=== PATIENT | male | born 1960 | race Caucasian/White ===

== ENCOUNTER 2021-05-10 13:21 | Inpatient (IN) | payer BC, OTHER ==
[2021-05-10 15:01] LABS: #Monocytes 0.4 thou/uL (0.11-0.59); #Neutrophils 3.3 thou/uL (1.40-6.50); %Basophils 0.7 % (0.0-1.0); %Eosinophils 0.6 % (0.0-10.0); %Lymphocytes 20.9 % (21.0-51.0); %Neutrophils 68.8 % (42.0-75.0); Hemoglobin 6.5 g/dL (14.0-18.0); Mean Corpuscular HGB CONC 31.2 g/dL (32.0-36.0); Mean Corpuscular Hemoglobin 23.6 pg (27.0-31.0); Mean Corpuscular Volume 75.4 fL (78.0-98.0); RBC Distribution Width 19.8 % (11.5-14.5); Red Blood Cell (RBC) Count 2.75 mill/uL (4.70-6.10); White Blood Cell (WBC) Count 4.7 thou/uL (4.8-10.8)
[2021-05-10 15:21] LABS: ALT (SGPT) 19 U/L (8-55); AST (SGOT) 60 U/L (5-34); Albumin 3.7 g/dL (3.5-5.0); Alkaline Phosphatase 83 U/L (40-110); Anion Gap 16 mmol/L (10-20); BUN (Urea Nitrogen) 7 mg/dL (8.4-25.7); Bilirubin, Total 1.2 mg/dL (0.2-1.2); Calc. Creatinine Clearance 0 mL/min (70-130); Calcium 8.5 mg/dL (7.8-10.44); Carbon Dioxide 18 mmol/L (22-29); Chloride 95 mmol/L (98-107); Globulin 3.2 g/dL (2.4-3.5); Glucose 98 mg/dL (70-105); Magnesium 2.1 mg/dL (1.6-2.6); Potassium 4.6 mmol/L (3.5-5.1); Protein, Total 6.9 g/dL (6.0-8.3); Sodium 124 mmol/L (136-145)
[2021-05-10 15:29] LABS: Hypochromia SLIGHT = 6-15 cells (100X) (0-5/hpf); MDiff Complete? YES; Mean Platelet Volume 10.3 fL (7.4-10.4); Microcytosis SLIGHT = 6-15 cells (100X) (0-5/hpf); Platelet Count 115 thou/uL (130-400); Platelet Morphology Comment Appears Decreased; Polychromasia SLIGHT = 2-3 cells (100X) (0-2/hpf); Schistocytes SLIGHT = 2-5 cells (100X) (0-1/hpf); Target Cells SLIGHT = 2-5 cells (100X) (0-1/hpf); Tear Drops SLIGHT = 2-5 cells (100X) (0-1/hpf)
[2021-05-10] MEDS ORDERED: Pantoprazole 40 MG VIAL ONE (16:29)
[2021-05-10 16:33] LABS: Bilirubin Negative (Negative); Blood, Urine Negative (Negative); Clarity Clear (Clear); Glucose, Urine (Dipstick) Normal (Negative); Ketone, Urine Negative (Negative); Leukocyte Negative Leu/uL (Negative); Nitrite Negative (Negative); Protein, Urine (Dipstick) Negative (Neg-Trace); Specific Gravity, Urine 1.003 (1.002-1.036); Urobilinogen Normal mg/dL (Less than 2)
[2021-05-10] MEDS ORDERED: Ondansetron PF 4 MG/2 ML Vial IVP PRN (17:45)
[2021-05-10] MEDS ORDERED: Ondansetron ODT 4 MG TAB PO PRN (17:45)
[2021-05-10] MEDS ORDERED: Acetaminophen 650 MG Suppository PR PRN (17:45)
[2021-05-10] MEDS ORDERED: Lorazepam 2 MG/ML VIAL IM PRN (17:54)
[2021-05-10] MEDS ORDERED: Lorazepam 1 MG TAB PO PRN (17:54)
[2021-05-10] MEDS ORDERED: Lorazepam 1 MG TAB PO SCH (18:00)
[2021-05-10 18:56] LABS: Hemoglobin 6.8 g/dL (14.0-18.0)
[2021-05-10 19:17] LABS: Bilirubin, Direct 0.5 mg/dL (0.1-0.3); Phosphorus 4.2 mg/dL (2.3-4.7)
[2021-05-10 19:27] LABS: Magnesium 2.1 mg/dL (1.6-2.6)
[2021-05-10 19:32] LABS: Syphilis Antibody Nonreactive (Nonreactive); Syphilis Antibody Index 0.27 S/CO (<1.00 Non-Reactive)
[2021-05-10] MEDS: Sodium Chloride 0.9% 1,000 ML IV SCH (21:00)
[2021-05-10] MEDS ORDERED: Folic Acid 1 MG TAB PO SCH (21:30)
[2021-05-10 22:26] VITALS: BMI 27.5
[2021-05-10] MEDS: Lorazepam 1 MG TAB PO SCH (23:57)
[2021-05-10] MEDS: Thiamine HCl 200 MG/2 ML VIAL SLOW IVP SCH (23:57)
[2021-05-11] MEDS: Sodium Chloride 0.9% 1,000 ML IV SCH (00:30)
[2021-05-11 01:24] LABS: Amphetamine Not Detected (NotDetected); Barbiturates Screen Not Detected (NotDetected); Benzodiazepine Screen Detected (NotDetected); Cocaine Metabolite Screen Not Detected (NotDetected); Methadone Not Detected (NotDetected); Methamphetamine Not Detected (NotDetected); Opiate Screen Not Detected (NotDetected); Oxycodone Screen Not Detected (NotDetected); Phencyclidine (PCP) Not Detected (NotDetected); THC/Cannabinoid Screen Not Detected (NotDetected); Tricyclic Screen Not Detected (NotDetected)
[2021-05-11 01:26] LABS: Potassium, Urine 39.9 mmol/L
[2021-05-11] MEDS: Lorazepam 1 MG TAB PO SCH ×4 (05:29→21:59)
[2021-05-11 06:39] LABS: #Lymphocytes 0.9 thou/uL (1.20-3.40); #Monocytes 0.4 thou/uL (0.11-0.59); #Neutrophils 2.8 thou/uL (1.40-6.50); %Basophils 0.8 % (0.0-1.0); %Eosinophils 0.7 % (0.0-10.0); %Lymphocytes 21.4 % (21.0-51.0); %Monocytes 9.7 % (0.0-10.0); %Neutrophils 67.3 % (42.0-75.0); Mean Corpuscular HGB CONC 30.4 g/dL (32.0-36.0); Mean Corpuscular Hemoglobin 23.5 pg (27.0-31.0); Mean Corpuscular Volume 77.2 fL (78.0-98.0); Mean Platelet Volume 9.7 fL (7.4-10.4); Platelet Count 102 thou/uL (130-400); Red Blood Cell (RBC) Count 2.99 mill/uL (4.70-6.10); White Blood Cell (WBC) Count 4.1 thou/uL (4.8-10.8)
[2021-05-11 06:50] LABS: Anion Gap 14 mmol/L (10-20); BUN (Urea Nitrogen) 8 mg/dL (8.4-25.7); Calc. Creatinine Clearance 118 mL/min (70-130); Calcium 8.5 mg/dL (7.8-10.44); Carbon Dioxide 21 mmol/L (22-29); Chloride 99 mmol/L (98-107); Glucose 81 mg/dL (70-105); Iron 22 ug/dL (65-175); Iron Binding Capacity, Total 341 mcg/dL (261-462); Potassium 4.5 mmol/L (3.5-5.1); Sodium 129 mmol/L (136-145)
[2021-05-11 06:51] LABS: Iron 24 ug/dL (65-175); Iron Binding Capacity, Total 340 mcg/dL (261-462)
[2021-05-11] MEDS: Folic Acid 1 MG TAB PO SCH (07:52)
[2021-05-11] MEDS: Multivit, Therapeutic 1 TAB PO SCH (07:52)
[2021-05-11 08:01] LABS: Hypochromia SLIGHT = 6-15 cells (100X) (0-5/hpf); MDiff Complete? YES; Microcytosis SLIGHT = 6-15 cells (100X) (0-5/hpf); Platelet Morphology Comment Appears Decreased; Polychromasia SLIGHT = 2-3 cells (100X) (0-2/hpf)
[2021-05-11] MEDS ORDERED: GoLYTELY 4,000 ml Bottle PO SCH (12:00)
[2021-05-11 12:19] LABS: SARS-CoV-2 PCR by NAA Not Detected (NotDetected)
[2021-05-11 12:32] LABS: Hemoglobin 7.1 g/dL (14.0-18.0)
[2021-05-11] MEDS: Pantoprazole 40 MG VIAL IVP SCH (13:24)
[2021-05-11] MEDS ORDERED: Lorazepam 1 MG TAB PO PRN (17:54)
[2021-05-11 18:56] LABS: Hemoglobin 7.2 g/dL (14.0-18.0)
[2021-05-11] MEDS: Acetaminophen 325 MG TAB PO PRN (20:35)
[2021-05-11] MEDS: Thiamine HCl 200 MG/2 ML VIAL SLOW IVP SCH (20:36)
[2021-05-12 00:46] LABS: Hemoglobin 6.5 g/dL (14.0-18.0)
[2021-05-12] MEDS: Lorazepam 1 MG TAB PO SCH ×4 (04:55→21:24)
[2021-05-12] MEDS: Levothyroxine Sodium 100 MCG TAB PO SCH (05:20)
[2021-05-12] MEDS ORDERED: PROPOFOL 20 ML ONE (07:52)
[2021-05-12] MEDS ORDERED: Ketamine 50 MG/ML (10ML VIAL) ONE (07:52)
[2021-05-12] MEDS ORDERED: PROPOFOL 200 MG/20 ML VIAL ONE (08:20)
[2021-05-12] MEDS ORDERED: ePHEDrine 50 MG/ML VIAL ONE (08:20)
[2021-05-12] MEDS ORDERED: Levothyroxine Sodium 100 MCG TAB PO SCH (09:00)
[2021-05-12] MEDS ORDERED: Ondansetron HCl/PF 4 MG/2 ML Vial IVP PRN (09:15)
[2021-05-12] MEDS ORDERED: Promethazine HCl 25 MG/ML VIAL IM PRN (09:15)
[2021-05-12] MEDS ORDERED: Promethazine HCl 25 MG/ML VIAL IVPB PRN (09:15)
[2021-05-12] MEDS: Amlodipine 5 MG TAB PO SCH (10:03)
[2021-05-12] MEDS: Lisinopril 10 MG TAB PO SCH (10:03)
[2021-05-12] MEDS: Folic Acid 1 MG TAB PO SCH (10:03)
[2021-05-12] MEDS: Multivit, Therapeutic 1 TAB PO SCH (10:04)
[2021-05-12] MEDS: Multivitamin W/ Minerals 1 TAB PO SCH (10:04)
[2021-05-12] MEDS: Pantoprazole 40 MG VIAL IVP SCH (10:04)
[2021-05-12] MEDS: Sodium Chloride 0.9% 1,000 ML IV SCH (10:05)
[2021-05-12] MEDS ORDERED: Iron, Sodium Ferric Gluconate 250 MG in Sodium Chloride 0.9% 250 ML 250 ML IVPB SCH (11:00)
[2021-05-12] MEDS: Acetaminophen 325 MG TAB PO PRN (12:41)
[2021-05-12] MEDS: Lorazepam 0.5 MG TAB PO SCH (17:46)
[2021-05-12] MEDS ORDERED: Lorazepam 1 MG TAB PO PRN (17:54)
[2021-05-12 19:53] LABS: Hemoglobin 8.6 g/dL (14.0-18.0)
[2021-05-12] MEDS: Thiamine HCl 200 MG/2 ML VIAL SLOW IVP SCH (20:43)
[2021-05-13] MEDS: Lorazepam 0.5 MG TAB PO SCH ×3 (00:21→12:49)
[2021-05-13] MEDS: Sodium Chloride 0.9% 1,000 ML IV SCH (05:16)
[2021-05-13] MEDS: Levothyroxine Sodium 100 MCG TAB PO SCH (05:16)
[2021-05-13 08:30] LABS: #Eosinphils 0.1 thou/uL (0.0-0.7); #Lymphocytes 1.3 thou/uL (1.20-3.40); #Monocytes 0.6 thou/uL (0.11-0.59); #Neutrophils 3.3 thou/uL (1.40-6.50); %Basophils 0.8 % (0.0-1.0); %Eosinophils 2.1 % (0.0-10.0); %Lymphocytes 23.7 % (21.0-51.0); %Monocytes 10.7 % (0.0-10.0); %Neutrophils 62.7 % (42.0-75.0); Hemoglobin 7.8 g/dL (14.0-18.0); Mean Corpuscular HGB CONC 30.7 g/dL (32.0-36.0); Mean Corpuscular Hemoglobin 24.9 pg (27.0-31.0); Mean Corpuscular Volume 81.1 fL (78.0-98.0); Mean Platelet Volume 10.6 fL (7.4-10.4); Platelet Count 110 thou/uL (130-400); RBC Distribution Width 20.6 % (11.5-14.5); Red Blood Cell (RBC) Count 3.13 mill/uL (4.70-6.10); White Blood Cell (WBC) Count 5.3 thou/uL (4.8-10.8)
[2021-05-13] MEDS ORDERED: Loperamide HCl 2 MG CAP PO PRN ×2 (08:33)
[2021-05-13] MEDS: Amlodipine 5 MG TAB PO SCH (08:47)
[2021-05-13] MEDS: Multivitamin W/ Minerals 1 TAB PO SCH (08:47)
[2021-05-13] MEDS: Folic Acid 1 MG TAB PO SCH (08:47)
[2021-05-13] MEDS: Lisinopril 10 MG TAB PO SCH ×2 (08:47→08:52)
[2021-05-13 08:48] LABS: Anion Gap 11 mmol/L (10-20); BUN (Urea Nitrogen) 5 mg/dL (8.4-25.7); Calc. Creatinine Clearance 106 mL/min (70-130); Calcium 8.1 mg/dL (7.8-10.44); Carbon Dioxide 21 mmol/L (22-29); Chloride 97 mmol/L (98-107); Glucose 97 mg/dL (70-105); Potassium 3.2 mmol/L (3.5-5.1); Sodium 126 mmol/L (136-145)
[2021-05-13] MEDS ORDERED: Potassium Chloride 20 MEQ TAB PO SCH (10:00)
[2021-05-13 10:09] LABS: ALT (SGPT) 8 U/L (8-55); AST (SGOT) 17 U/L (5-34); Albumin 3.1 g/dL (3.5-5.0); Alkaline Phosphatase 60 U/L (40-110); Bilirubin, Total 1.6 mg/dL (0.2-1.2); Globulin 2.6 g/dL (2.4-3.5); Protein, Total 5.7 g/dL (6.0-8.3)
[2021-05-13 12:13] VITALS: BP 117/77; TEMP 97.2
[2021-05-13 17:02] LABS: EliA Celiac New Method **** NEW METHOD ****; t-Transglutaminase (tTG) IgA 0.6 EliAU/mL (<7 Negative)
[2021-05-13] MEDS ORDERED: Lorazepam 0.5 MG TAB PO PRN (17:54)
[2021-05-13] MEDS ORDERED: Thiamine 100 MG TAB PO SCH (21:00)
== END 2021-05-13 12:45 | disposition home or self-care (01) | DRG 369 ==
LOC: ERS 13:21 → T4-B 16:54
PROVIDERS: ADMIT Internal Medicine; ATTEND Internal Medicine
PROC: 30233N1 Transfusion of Nonautologous Red Blood Cells into Peripheral Vein, Percutaneous Approach (ICD-10-PCS; principal; 2021-05-10)
PROC: 0DJ08ZZ Inspection of Upper Intestinal Tract, Via Natural or Artificial Opening Endoscopic (ICD-10-PCS; 2021-05-12)
PROC: 0DBK8ZZ Excision of Ascending Colon, Via Natural or Artificial Opening Endoscopic (ICD-10-PCS; 2021-05-12)
PROC: 0DBL8ZZ Excision of Transverse Colon, Via Natural or Artificial Opening Endoscopic (ICD-10-PCS; 2021-05-12)
PROC: 0DBN8ZZ Excision of Sigmoid Colon, Via Natural or Artificial Opening Endoscopic (ICD-10-PCS; 2021-05-12)
PROC: 0DBH8ZZ Excision of Cecum, Via Natural or Artificial Opening Endoscopic (ICD-10-PCS; 2021-05-12)
PROC: 0D5M8ZZ Destruction of Descending Colon, Via Natural or Artificial Opening Endoscopic (ICD-10-PCS; 2021-05-12)
DX: K21.01 Gastro-esophageal reflux disease with esophagitis, with bleeding (principal); E87.1 Hypo-osmolality and hyponatremia; K76.6 Portal hypertension; E51.9 Thiamine deficiency, unspecified; D62 Acute posthemorrhagic anemia; Z20.822 Contact with and (suspected) exposure to COVID-19; E53.8 Deficiency of other specified B group vitamins; E88.09 Other disorders of plasma-protein metabolism, not elsewhere classified; F10.10 Alcohol abuse, uncomplicated; K63.5 Polyp of colon; F32.A Depression, unspecified; H40.9 Unspecified glaucoma; E03.9 Hypothyroidism, unspecified; K31.89 Other diseases of stomach and duodenum; K55.20 Angiodysplasia of colon without hemorrhage; Z71.41 Alcohol abuse counseling and surveillance of alcoholic; Z80.0 Family history of malignant neoplasm of digestive organs; Z79.899 Other long term (current) drug therapy; Z79.890 Hormone replacement therapy
CPT/HCPCS: 36415; 36430; 71045; 80048; 80053; 80306; 81003; 82248; 82274; 82436; 82607; 82746; 83516; 83540; 83550; 83735; 83930; 83935; 84100; 84133; 84300; 84484; 84540; 84560; 85014; 85018; 85025; 86780; 86850; 86900; 86901; 88305; 93005; 96374; C9113; J2704; J2916; J3411; J3490; J7050; P9016; U0003; U0005

== ENCOUNTER 2021-09-24 15:55 | Inpatient (IN) | payer OTHER, SELFPAY ==
[2021-09-24 16:57] LABS: ALT (SGPT) 14 U/L (8-55); AST (SGOT) 42 U/L (5-34); Albumin 3.2 g/dL (3.5-5.0); Alkaline Phosphatase 172 U/L (40-110); Anion Gap 11 mmol/L (10-20); BUN (Urea Nitrogen) 6 mg/dL (8.4-25.7); Bilirubin, Total 2.8 mg/dL (0.2-1.2); Calc. Creatinine Clearance 0 mL/min (70-130); Calcium 8.2 mg/dL (7.8-10.44); Carbon Dioxide 20 mmol/L (22-29); Chloride 93 mmol/L (98-107); Globulin 3.7 g/dL (2.4-3.5); Glucose 101 mg/dL (70-105); Potassium 4.5 mmol/L (3.5-5.1); Protein, Total 6.9 g/dL (6.0-8.3)
[2021-09-24 16:57] LABS: Bilirubin Negative (Negative); Blood, Urine Negative (Negative); Clarity Clear (Clear); Glucose, Urine (Dipstick) Normal (Negative); Ketone, Urine Negative (Negative); Leukocyte Negative Leu/uL (Negative); Nitrite Negative (Negative); Protein, Urine (Dipstick) 10 mg/dL (Neg-Trace); Specific Gravity, Urine 1.013 (1.002-1.036); Urobilinogen Normal mg/dL (Less than 2)
[2021-09-24 17:10] LABS: Sodium 119 mmol/L (136-145)
[2021-09-24 17:26] LABS: Hemoglobin 7.1 g/dL (14.0-18.0); Mean Corpuscular HGB CONC 29.4 g/dL (32.0-36.0); Mean Corpuscular Hemoglobin 26.6 pg (27.0-31.0); Mean Corpuscular Volume 90.6 fL (78.0-98.0); Mean Platelet Volume 6.6 fL (7.4-10.4); Platelet Count 201 thou/uL (130-400); RBC Distribution Width 14.3 % (11.5-14.5); Red Blood Cell (RBC) Count 2.65 mill/uL (4.70-6.10); White Blood Cell (WBC) Count 6.9 thou/uL (4.8-10.8)
[2021-09-24] MEDS ORDERED: Ondansetron PF 4 MG/2 ML Vial IVP PRN (17:56)
[2021-09-24] MEDS ORDERED: Lorazepam 1 MG TAB PO PRN (18:05)
[2021-09-24] MEDS ORDERED: Ondansetron ODT 4 MG TAB PO PRN (18:05)
[2021-09-24] MEDS ORDERED: Lorazepam 2 MG/ML VIAL IM PRN (18:05)
[2021-09-24 18:08] LABS: #Basophils 0.1 thou/uL (0.0-0.2); #Eosinphils 0.1 thou/uL (0.0-0.7); #Lymphocytes 0.9 thou/uL (1.20-3.40); #Monocytes 0.6 thou/uL (0.11-0.59); #Neutrophils 5.2 thou/uL (1.40-6.50); %Basophils 1.1 % (0.0-1.0); %Eosinophils 0.8 % (0.0-10.0); %Lymphocytes 13.6 % (21.0-51.0); %Monocytes 9.1 % (0.0-10.0); %Neutrophils 75.4 % (42.0-75.0)
[2021-09-24 18:09] LABS: Hypochromia SLIGHT = 6-15 cells (100X) (0-5/hpf); MDiff Complete? YES; Platelet Morphology Comment Appears Adequate; Polychromasia SLIGHT = 2-3 cells (100X) (0-2/hpf)
[2021-09-24] MEDS ORDERED: Morphine 4 MG/ML VIAL SLOW IVP PRN (18:11)
[2021-09-24] MEDS ORDERED: Electrolyte Replacement Protocol 1 EACH FS SCH (18:15)
[2021-09-24] MEDS ORDERED: Lorazepam 1 MG TAB PO SCH (18:15)
[2021-09-24] MEDS ORDERED: Multivit, Therapeutic 1 TAB PO SCH (18:30)
[2021-09-24] MEDS ORDERED: Folic Acid 1 MG TAB PO SCH (18:30)
[2021-09-24] MEDS ORDERED: Electrolyte Replacement Protocol FS PRN (18:30)
[2021-09-24 18:47] LABS: Bilirubin, Direct 1.8 mg/dL (0.1-0.3); Magnesium 1.9 mg/dL (1.6-2.6); Phosphorus 3.6 mg/dL (2.3-4.7)
[2021-09-24 22:27] VITALS: BMI 30.9
[2021-09-24] MEDS: Thiamine HCl 200 MG/2 ML VIAL SLOW IVP SCH (22:34)
[2021-09-25] MEDS ORDERED: Magnesium 2 GM/50 ML 2 GM in Premix Bag 1 BAG IVPB SCH (03:30)
[2021-09-25] MEDS: Lorazepam 1 MG TAB PO SCH ×4 (03:58→23:01)
[2021-09-25 06:30] LABS: Hemoglobin 6.1 g/dL (14.0-18.0); Mean Corpuscular HGB CONC 30.8 g/dL (32.0-36.0); Mean Corpuscular Hemoglobin 27.7 pg (27.0-31.0); Mean Corpuscular Volume 89.9 fL (78.0-98.0); Platelet Count 162 thou/uL (130-400); RBC Distribution Width 14.2 % (11.5-14.5); Red Blood Cell (RBC) Count 2.19 mill/uL (4.70-6.10); White Blood Cell (WBC) Count 5.6 thou/uL (4.8-10.8)
[2021-09-25 06:36] LABS: INR-International Normal Ratio 1.4; Prothrombin Time 17.5 sec (12.0-14.7)
[2021-09-25 06:52] LABS: ALT (SGPT) 11 U/L (8-55); AST (SGOT) 30 U/L (5-34); Albumin 2.6 g/dL (3.5-5.0); Alkaline Phosphatase 135 U/L (40-110); Anion Gap 12 mmol/L (10-20); BUN (Urea Nitrogen) 8 mg/dL (8.4-25.7); Bilirubin, Total 2.4 mg/dL (0.2-1.2); Calc. Creatinine Clearance 102 mL/min (70-130); Calcium 7.8 mg/dL (7.8-10.44); Carbon Dioxide 18 mmol/L (22-29); Chloride 95 mmol/L (98-107); Glucose 86 mg/dL (70-105); Iron 11 ug/dL (65-175); Iron Binding Capacity, Total 196 mcg/dL (261-462); Potassium 4.7 mmol/L (3.5-5.1); Protein, Total 5.6 g/dL (6.0-8.3); Sodium 120 mmol/L (136-145)
[2021-09-25] MEDS ORDERED: Sodium Bicarbonate 2.5 MEQ/5 ML VIAL ONE (08:01)
[2021-09-25] MEDS ORDERED: Lidocaine 1% PF 5 ML VIAL ONE (08:01)
[2021-09-25 08:03] LABS: #Eosinphils 0.1 thou/uL (0.0-0.7); #Lymphocytes 1.1 thou/uL (1.20-3.40); #Monocytes 0.7 thou/uL (0.11-0.59); #Neutrophils 3.8 thou/uL (1.40-6.50); %Basophils 0.8 % (0.0-1.0); %Eosinophils 1.1 % (0.0-10.0); %Monocytes 12.5 % (0.0-10.0); %Neutrophils 66.6 % (42.0-75.0); Hypochromia SLIGHT = 6-15 cells (100X) (0-5/hpf); MDiff Complete? YES; Platelet Morphology Comment Appears Adequate; Polychromasia SLIGHT = 2-3 cells (100X) (0-2/hpf)
[2021-09-25] MEDS ORDERED: Folic Acid 1 MG TAB PO SCH (09:00)
[2021-09-25] MEDS: Furosemide 40 MG TAB PO SCH (10:05)
[2021-09-25] MEDS: Sodium Chloride 1 GM TAB PO SCH ×2 (10:05→17:05)
[2021-09-25] MEDS: Spironolactone 100 MG TAB PO SCH (10:05)
[2021-09-25] MEDS: Multivit, Therapeutic 1 TAB PO SCH (10:05)
[2021-09-25 11:11] LABS: RBC Count-Automated (BF) 22 /cu.mm; WBC/Nucleated-Auto (BF) 216 /cu.mm
[2021-09-25 11:24] LABS: BF Color Yellow; Body Fluid Source Peritoneal Fluid; Clarity Hazy (Clear); Tube # EDTA
[2021-09-25 11:36] LABS: BF Segmented Neutrophils 30 %; Cell Count Non Hematic 47 %; Lymphocytes 23 %
[2021-09-25 13:28] LABS: SARS-CoV-2 PCR by NAA Not Detected (NotDetected)
[2021-09-25] MEDS: Acetaminophen 500 MG TAB PO PRN (17:04)
[2021-09-25] MEDS ORDERED: Lorazepam 1 MG TAB PO PRN (18:06)
[2021-09-25] MEDS: Thiamine HCl 200 MG/2 ML VIAL SLOW IVP SCH (18:09)
[2021-09-26 06:08] LABS: #Eosinphils 0.1 thou/uL (0.0-0.7); #Lymphocytes 1.1 thou/uL (1.20-3.40); #Monocytes 0.5 thou/uL (0.11-0.59); #Neutrophils 2.5 thou/uL (1.40-6.50); %Basophils 0.8 % (0.0-1.0); %Eosinophils 1.8 % (0.0-10.0); %Lymphocytes 26.2 % (21.0-51.0); %Monocytes 11.6 % (0.0-10.0); %Neutrophils 59.7 % (42.0-75.0); Hemoglobin 6.4 g/dL (14.0-18.0); Mean Corpuscular HGB CONC 30.6 g/dL (32.0-36.0); Mean Corpuscular Hemoglobin 27.5 pg (27.0-31.0); Mean Corpuscular Volume 89.8 fL (78.0-98.0); Mean Platelet Volume 6.5 fL (7.4-10.4); Platelet Count 167 thou/uL (130-400); RBC Distribution Width 14.3 % (11.5-14.5); Red Blood Cell (RBC) Count 2.34 mill/uL (4.70-6.10); White Blood Cell (WBC) Count 4.2 thou/uL (4.8-10.8)
[2021-09-26] MEDS: Lorazepam 1 MG TAB PO SCH ×3 (06:18→16:03)
[2021-09-26] MEDS: Levothyroxine Sodium 100 MCG TAB PO SCH (07:19)
[2021-09-26] MEDS: Ferrous Sulfate 325 MG TAB PO SCH (08:35)
[2021-09-26] MEDS: Folic Acid 1 MG TAB PO SCH (08:35)
[2021-09-26] MEDS: Multivit, Therapeutic 1 TAB PO SCH (08:35)
[2021-09-26] MEDS: Lisinopril 10 MG TAB PO SCH (08:36)
[2021-09-26] MEDS: Spironolactone 100 MG TAB PO SCH (08:36)
[2021-09-26] MEDS: Sodium Chloride 1 GM TAB PO SCH ×3 (08:36→16:03)
[2021-09-26] MEDS: Furosemide 40 MG TAB PO SCH (08:37)
[2021-09-26] MEDS: Amlodipine 5 MG TAB PO SCH (08:37)
[2021-09-26] MEDS: Mirtazapine 30 MG TAB PO SCH (08:37)
[2021-09-26] MEDS: Iron, Sodium Ferric Gluconate 250 MG in Sodium Chloride 0.9% 250 ML 250 ML IVPB SCH ×2 (13:00→20:43)
[2021-09-26] MEDS: Phytonadione 10 MG in Sodium Chloride 0.9% 50 ML IVPB SCH ×2 (15:01→15:03)
[2021-09-26 16:43] LABS: Hemoglobin 7.5 g/dL (14.0-18.0); Platelet Count 167 thou/uL (130-400)
[2021-09-26] MEDS: Lorazepam 0.5 MG TAB PO SCH (17:54)
[2021-09-26] MEDS: Thiamine HCl 200 MG/2 ML VIAL SLOW IVP SCH (18:04)
[2021-09-26] MEDS ORDERED: Lorazepam 1 MG TAB PO PRN (18:06)
[2021-09-26] MEDS: Benzonatate 100 MG CAP PO PRN (21:40)
[2021-09-26] MEDS: Acetaminophen 500 MG TAB PO PRN (21:40)
[2021-09-27] MEDS: Lorazepam 0.5 MG TAB PO SCH ×3 (00:09→11:39)
[2021-09-27] MEDS: Benzonatate 100 MG CAP PO PRN (05:22)
[2021-09-27] MEDS: Levothyroxine Sodium 100 MCG TAB PO SCH (05:22)
[2021-09-27 06:41] VITALS: TEMP 98.2
[2021-09-27 06:41] LABS: Band 2 % (5-11); Hemoglobin 7.8 g/dL (14.0-18.0); Hypochromia SLIGHT = 6-15 cells (100X) (0-5/hpf); Lymphocytes 4 % (21-51); MDiff Complete? YES; Mean Corpuscular HGB CONC 31.4 g/dL (32.0-36.0); Mean Corpuscular Hemoglobin 28.3 pg (27.0-31.0); Mean Corpuscular Volume 90.1 fL (78.0-98.0); Mean Platelet Volume 6.7 fL (7.4-10.4); Monocytes 12 % (0-10); Neutrophil 82 % (42-75); Platelet Count 183 thou/uL (130-400); Platelet Morphology Comment Appears Adequate; RBC Distribution Width 14.6 % (11.5-14.5); Red Blood Cell (RBC) Count 2.74 mill/uL (4.70-6.10); White Blood Cell (WBC) Count 5.3 thou/uL (4.8-10.8)
[2021-09-27] MEDS: Spironolactone 100 MG TAB PO SCH (08:24)
[2021-09-27] MEDS: Sodium Chloride 1 GM TAB PO SCH ×2 (08:24→17:52)
[2021-09-27] MEDS: Multivit, Therapeutic 1 TAB PO SCH (08:24)
[2021-09-27] MEDS: Mirtazapine 30 MG TAB PO SCH (08:25)
[2021-09-27] MEDS: Amlodipine 5 MG TAB PO SCH (08:25)
[2021-09-27] MEDS: Lisinopril 10 MG TAB PO SCH (08:25)
[2021-09-27] MEDS: Ferrous Sulfate 325 MG TAB PO SCH (08:25)
[2021-09-27] MEDS: Folic Acid 1 MG TAB PO SCH (08:25)
[2021-09-27] MEDS: Furosemide 40 MG TAB PO SCH (08:26)
[2021-09-27 08:52] VITALS: BP 102/67
[2021-09-27] MEDS ORDERED: Lorazepam 0.5 MG TAB PO PRN (18:06)
[2021-09-27] MEDS ORDERED: Thiamine 100 MG TAB PO SCH (18:15)
== END 2021-09-27 20:05 | disposition home or self-care (01) | DRG 433 ==
LOC: ERS 15:55 → 2NO 17:41 → T4-A 09-25 20:57
PROVIDERS: ADMIT Internal Medicine; ATTEND Internal Medicine
PROC: 0W9G3ZZ Drainage of Peritoneal Cavity, Percutaneous Approach (ICD-10-PCS; principal; 2021-09-25)
PROC: 30233N1 Transfusion of Nonautologous Red Blood Cells into Peripheral Vein, Percutaneous Approach (ICD-10-PCS; 2021-09-25)
DX: K70.31 Alcoholic cirrhosis of liver with ascites (principal); E87.1 Hypo-osmolality and hyponatremia; K76.6 Portal hypertension; Z20.822 Contact with and (suspected) exposure to COVID-19; F10.10 Alcohol abuse, uncomplicated; E87.70 Fluid overload, unspecified; E03.9 Hypothyroidism, unspecified; K21.00 Gastro-esophageal reflux disease with esophagitis, without bleeding; K31.89 Other diseases of stomach and duodenum; D50.9 Iron deficiency anemia, unspecified; I10 Essential (primary) hypertension; Z79.899 Other long term (current) drug therapy
CPT/HCPCS: 36415; 36430; 49083; 71045; 76705; 80053; 81003; 82042; 82248; 82728; 83540; 83550; 83735; 83880; 84100; 84157; 84484; 85025; 85060; 85610; 86850; 86900; 86901; 89051; 93005; J2916; J3411; J3430; J3475; J7050; P9016; U0003; U0005

== ENCOUNTER 2021-12-11 13:38 | Outpatient (CLI) | payer OTHER | END 2021-12-11 13:39 | disposition home or self-care (01) | LOC: RAD 13:38 | PROVIDERS: ATTEND Physician Assistant Medical | DX: R05.3 Chronic cough (principal); K70.30 Alcoholic cirrhosis of liver without ascites; R00.0 Tachycardia, unspecified; I49.9 Cardiac arrhythmia, unspecified; D64.9 Anemia, unspecified; R25.2 Cramp and spasm | CPT/HCPCS: 71046; 93005; 93010 ==

== ENCOUNTER 2021-12-14 09:09 | Day surgery (SDC) | payer OTHER ==
[2021-12-13 10:07] VITALS: BMI 30.7
[2021-12-14 09:39] LABS: INR-International Normal Ratio 1.3; Prothrombin Time 15.9 sec (12.0-14.7)
[2021-12-14 09:41] LABS: PTT 40.4 sec (22.9-36.1)
[2021-12-14 09:47] LABS: #Lymphocytes 0.6 thou/uL (1.20-3.40); #Monocytes 0.5 thou/uL (0.11-0.59); #Neutrophils 4.7 thou/uL (1.40-6.50); %Basophils 0.2 % (0.0-1.0); %Eosinophils 0.6 % (0.0-10.0); %Lymphocytes 10.2 % (21.0-51.0); %Monocytes 9.3 % (0.0-10.0); %Neutrophils 79.6 % (42.0-75.0); Hemoglobin 10.3 g/dL (14.0-18.0); Mean Corpuscular HGB CONC 32.5 g/dL (32.0-36.0); Mean Corpuscular Volume 95.3 fL (78.0-98.0); Mean Platelet Volume 6.2 fL (7.4-10.4); Platelet Count 170 thou/uL (130-400); Red Blood Cell (RBC) Count 3.33 mill/uL (4.70-6.10); White Blood Cell (WBC) Count 5.8 thou/uL (4.8-10.8)
[2021-12-14] MEDS ORDERED: Albumin 25% 200 ML ONE (09:52)
[2021-12-14] MEDS ORDERED: Lidocaine 1% PF 5 ML VIAL ONE (09:52)
[2021-12-14] MEDS ORDERED: Sodium Bicarbonate 2.5 MEQ/5 ML VIAL ONE (09:52)
[2021-12-14 12:38] VITALS: BP 112/75
== END 2021-12-14 11:28 | disposition home or self-care (01) ==
LOC: ULT 09:09
PROVIDERS: ATTEND Physician Assistant Medical
PROC: 0W9G3ZZ Drainage of Peritoneal Cavity, Percutaneous Approach (ICD-10-PCS; principal; 2021-12-14)
DX: K70.31 Alcoholic cirrhosis of liver with ascites (principal); Z79.890 Hormone replacement therapy; Z79.899 Other long term (current) drug therapy
CPT/HCPCS: 49083; 85025; 85610; 85730; P9047